=== PATIENT | male | born 1955 | race Caucasian/White ===

== ENCOUNTER 2018-03-28 14:11 | Emergency (ER) | payer SELFPAY ==
[~2018-03-28] VITALS: Ht 177.8 cm; Wt 86.2 kg
[2018-03-28] MEDS ORDERED: LACTATED RINGERS 1,000 ML IV ONE (14:50)
--- NOTE | 2018-03-28 14:50 | ED Syncope ---
General Chief Complaint: Dizziness/Syncope Stated Complaint: SYNCOPY Nursing Triage Note: PT ARRIVED PER EMS, PT CO OF SYNCOPAL EPISODE WHILE OUT SIDE PT STATES IS TRAVELING [employer]. PT HAS SL IN PLACE AND HAS 1L OF NS PER EMS. 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 He says he was trying to arrange a ride to [place]. He is a traveling wilber. He was talking to somebody and the next thing he remembers that person was standing over him telling him that he had passed out and went down to 1 knee. He does not have any pain in his head and does not think he struck his head. He is not on any medications except for ginseng and vitamin C. He does not have any known medical history. He said when he was a kid he had some palpitations but nothing came of that workup. He does not have a history of diabetes. Is not having any shortness of breath, palpitations, chest pain. He has a little pain in his left shoulder since this morning when he woke up he says he thinks he slept on it wrong. She's having no fevers, chills or rash. EMS reports he was able to get onto the gurney and into the truck on his own. The patient also reports she's been having some near syncopal episodes while at [employer] and he thought maybe at first it was just related to anxiety of public speaking. He's been doing traveling [employer] for over 40 years. He says a few weeks ago he was in [place], [place] and had some bleeding from his thyroid so he went to a doctor's clinic and they put a stitch in his throat from the inside. He has no history of hypo-or hyperthyroidism nor is he had any surgeries on his thyroid. He says this is done in the clinic. Allergies and Home Medications Allergies Coded Allergies: No Known Drug Allergies (Unverified , 03/28/18) Patient Home Medication List Home Medication List Reviewed: Yes Constitutional: No chills, No diaphoresis, No fever, No malaise EENTM: No ear discharge, No hearing loss, No ear pain Respiratory: cough Cardiovascular: No chest pain, No edema, No Hx of Intervention, No palpitations ; syncope Gastrointestinal: No abdominal pain, No constipation, No diarrhea, No nausea Genitourinary: No discharge, No dysuria Musculoskeletal: No joint pain, No joint swelling Skin: No pruritus, No rash Psychiatric/Neurological: Denies Headache, Denies Numbness, Denies Paresthesia Past Dygloxa-Vikdbl-Wcasdg Hx Patient Social History Alcohol Use: Denies Use Recreational Drug Use: No Smoking Status: Never a Smoker Recent Foreign Travel: No Contact w/Someone Who Travel: No Recent Infectious Disease Expo: No Recent Hopitalizations: No Physical Abuse: No Sexual Abuse: No Seasonal Allergies Seasonal Allergies: No Past Medical History Nursing Suicide Risk Score: 0 Physical Exam Vital Signs Vital Signs - First Documented 03/28/18 14:11 Temp 98.9 Pulse 89 Resp 22 B/P (MAP) 127/92 (104) Pulse Ox 99 Capillary Refill : Less Than 3 Seconds General Appearance: No Apparent Distress, Thin HEENT: PERRL/EOMI, Normal ENT Inspection, Pharynx Normal Neck: Full Range of Motion, Normal Inspection, Non Tender, Supple, Other (no evidence of wound or surgery.) Cardiovascular: Regular Rate, Rhythm, No Edema, No JVD, No Murmur, Normal Peripheral Pulses Respiratory: Chest Non Tender, Lungs Clear, Normal Breath Sounds, No Accessory Muscle Use, No Respiratory Distress Gastrointestinal: Normal Bowel Sounds, Non Tender, Soft Extremities: Normal Capillary Refill, Non Tender, No Calf Tenderness, No Pedal Edema Neurologic/Psychiatric: Alert, Oriented x3, No Motor/Sensory Deficits, Normal Mood/Affect, service tester II-XII Norm as Tested Cranial Nerves: Normal Hearing, Normal Speech, PERRL Coordination/Gait: Normal Finger to Nose, Normal Gait Motor/Sensory: No Motor Deficit, No Sensory Deficit, No Pronator Drift Skin: Normal Color, Warm/Dry Lymphatic: No Adenopathy Progress/Results/Core Measures Results/Orders Lab Results Laboratory Tests Test 03/28/18 14:30 03/28/18 14:44 03/28/18 14:53 Range/Units White Blood Count 6.6 4.3-11.0 10^3/uL Red Blood Count 4.33 L 4.35-5.85 10^6/uL Hemoglobin 13.4 13.3-17.7 G/DL Hematocrit 39 L 40-54 % Mean Corpuscular Volume 91 80-99 FL Mean Corpuscular Hemoglobin 31 25-34 PG Mean Corpuscular Hemoglobin Concent 34 32-36 G/DL Red Cell Distribution Width 13.2 10.0-14.5 % Platelet Count 356 130-400 10^3/uL Mean Platelet Volume 9.8 7.4-10.4 FL Neutrophils (%) (Auto) 67 42-75 % Lymphocytes (%) (Auto) 20 12-44 % Monocytes (%) (Auto) 12 0-12 % Eosinophils (%) (Auto) 1 0-10 % Basophils (%) (Auto) 1 0-10 % Neutrophils # (Auto) 4.4 1.8-7.8 X 10^3 Lymphocytes # (Auto) 1.3 1.0-4.0 X 10^3 Monocytes # (Auto) 0.8 0.0-1.0 X 10^3 Eosinophils # (Auto) 0.0 0.0-0.3 10^3/uL Basophils # (Auto) 0.0 0.0-0.1 10^3/uL Sodium Level 140 135-145 MMOL/L Potassium Level 4.1 3.6-5.0 MMOL/L Chloride Level 110 H 98-107 MMOL/L Carbon Dioxide Level 19 L 21-32 MMOL/L Anion Gap 11 5-14 MMOL/L Blood Urea Nitrogen 10 7-18 MG/DL Creatinine 0.93 0.60-1.30 MG/DL Estimat Glomerular Filtration Rate > 60 BUN/Creatinine Ratio 11 Glucose Level 86 70-105 MG/DL Calcium Level 8.7 8.5-10.1 MG/DL Magnesium Level 2.1 1.8-2.4 MG/DL Total Bilirubin 0.6 0.1-1.0 MG/DL Aspartate Amino Transf (AST/SGOT) 19 5-34 U/L Alanine Aminotransferase (ALT/SGPT) 29 0-55 U/L Alkaline Phosphatase 76 40-136 U/L C-Reactive Protein High Sensitivity 0.04 0.00-0.50 MG/DL Total Protein 6.1 L 6.4-8.2 GM/DL Albumin 4.0 3.2-4.5 GM/DL Thyroid Stimulating Hormone (TSH) 1.30 0.35-4.94 UIU/ML Glucometer 86 70-110 MG/DL Urine Color YELLOW Urine Clarity SLIGHTLY CLOUDY Urine pH 6 5-9 Urine Specific [place] 1.010 L 1.016-1.022 Urine Protein NEGATIVE NEGATIVE Urine Glucose (UA) NEGATIVE NEGATIVE Urine Ketones NEGATIVE NEGATIVE Urine Nitrite NEGATIVE NEGATIVE Urine Bilirubin NEGATIVE NEGATIVE Urine Urobilinogen NORMAL NORMAL MG/DL Urine Leukocyte Esterase NEGATIVE NEGATIVE Urine RBC (Auto) NEGATIVE NEGATIVE Urine RBC NONE /HPF Urine WBC NONE /HPF Urine Squamous Epithelial Cells NONE /HPF Urine Crystals NONE /LPF Urine Bacteria NEGATIVE /HPF Urine Casts NONE /LPF Urine Mucus NEGATIVE /LPF Urine Culture Indicated NO Urine Opiates Screen NEGATIVE NEGATIVE Urine Oxycodone Screen NEGATIVE NEGATIVE Urine Methadone Screen NEGATIVE NEGATIVE Urine Propoxyphene Screen NEGATIVE NEGATIVE Urine Barbiturates Screen NEGATIVE NEGATIVE Ur Tricyclic Antidepressants Screen NEGATIVE NEGATIVE Urine Phencyclidine Screen NEGATIVE NEGATIVE Urine Amphetamines Screen NEGATIVE NEGATIVE Urine Methamphetamines Screen NEGATIVE NEGATIVE Urine Benzodiazepines Screen NEGATIVE NEGATIVE Urine Cocaine Screen NEGATIVE NEGATIVE Urine Cannabinoids Screen NEGATIVE NEGATIVE My Orders Orders - CASA CAT Cbc With Automated Diff (03/28/18 14:50) Comprehensive Metabolic Panel (03/28/18 14:50) Hs C Reactive Protein (03/28/18 14:50) Drug Screen Stat (Urine) (03/28/18 14:50) Magnesium (03/28/18 14:50) Ua Culture If Indicated (03/28/18 14:50) Chest Pa/Lat (2 View) (03/28/18 14:50) Saline Lock/Iv-Start (03/28/18 14:50) Lactated Ringers (Lr 1000 Ml Iv Solution (03/28/18 14:50) Ekg Tracing (03/28/18 14:52) Continuous Ekg Monitoring (03/28/18 14:52) Thyroid Stimulating Hormone (03/28/18 14:52) Ct Head/Cervical Spine Wo (03/28/18 14:56) Orthostatic Vital Signs (Adult (03/28/18 15:02) Vital Signs/I&O 03/28/18 03/28/18 14:11 15:34 Temp 98.9 Pulse 89 80 68 87 Resp 22 B/P (MAP) 127/92 (104) 139/80 (99) 121/76 (91) 119/79 (92) Pulse Ox 99 Blood Pressure Mean: 104 FSBG Bedside Testing Finger Stick Blood Glucose: 86 Blood Glucose Action Taken: rn notified Progress Progress Note #1: Time: 15:01 Progress Note Blood glucose is 86. We'll get an EKG, we have discussed risk benefits and alternatives to doing a CT of his head and he has elected to do it. We will establish an IV and give him some IV fluids as well as check some orthostatics and basic lab work looking for evidence of why he is having syncopal episodes. Orthostatics are normal. Patient's Hoang received a liter of fluids from EMS and this would explain why he does not look dehydrated. Progress Note #2: Time: 15:57 Progress Note The patient's symptoms are gone he is walking around much better. It's possible he just got overheated but it would be [place] that he follow up with primary care provider and consider an out patient monitor study. He says he will talk to his primary care doctor at home. Initial ECG Impression Date: March 28, 2018 Initial ECG Impression Time: 15:28 Initial ECG Rate: 63 Initial ECG Rhythm: Normal Sinus Initial ECG Intervals: Normal Initial ECG Impression: Normal Initial ECG Comparisson: No Previous ECG Available Comment No ST elevation or depression. Diagnostic Imaging Diagonstic Imaging: Xray Plain Films/CT/US/NM/MRI: chest Comments VIA [facility], [facility]. [place], [place] NAME: BEENA [facility]RBAN[facility] REC#: [id number] PT STATUS: REG ER : 1955 PHYSICIAN: CASA CAT MD ADMIT DATE: 03/28/18/ER Draft Date of Exam:03/28/18 CHEST PA/LAT (2 VIEW) EXAM: PA and lateral chest at 3:32 p.m. INDICATION: Syncope COMPARISON: There are no prior studies available for comparison. FINDINGS: The heart size is within normal limits. The lungs are clear and perhaps slightly hyperexpanded. The possibility of mild COPD should be considered. There is no sign of failure, pneumonia or of pleural effusion. The mediastinum is not widened. The osseous structures are intact. IMPRESSION: 1. There is no acute cardiopulmonary abnormality identified. 2. The mild hyperexpansion of the lungs does raise the question of mild COPD. Clinical followup is recommended. Dictated on workstation # [id number] Dict: 03/28/18 1514 Trans: 03/28/18 1522 [facility] [id number] Interpreted by: ORACIO METZGER MD Electronically signed by: Reviewed: Reviewed by Me Diagonstic Imaging: CT Plain Films/CT/US/NM/MRI: c-spine, head Comments VIA [place], [place] NAME: BEENA URBANO [facility] REC#: [id number] PT STATUS: REG ER : 1955 PHYSICIAN: CASA CAT MD ADMIT DATE: 03/28/18/ER Draft Date of Exam:03/28/18 CT HEAD/CERVICAL SPINE WO PROCEDURE: CT head and CT cervical spine without contrast. TECHNIQUE: Multiple contiguous axial images were obtained through the brain and cervical spine without the use of intravenous contrast. Sagittal and coronal reformations through the cervical spine were then performed. INDICATION: Syncope. There are no prior studies available for comparison. FINDINGS: CT head: There is no mass, shift of midline or hemorrhage to suggest an acute intracranial abnormality. The ventricles are prominent and the right lateral ventricle and the right occipital horn are asymmetrically larger than the left. This is probably a developmental variant. The bone window show no evidence for fracture or for destructive lesion. The orbits are symmetrical and within normal limits. The sinuses are generally clear. IMPRESSION: 1. There is no evidence for an acute intracranial abnormality. There is no sign of a mass lesion either. 2. If clinical concern regarding an underlying abnormality persists, MRI would be recommended for further study. 3. The ventricles are prominent and the right lateral ventricle and right occipital horn are asymmetrically larger than the left. This is probably a developmental variant. CT cervical spine: The reconstructed sagittal images show there is narrowing of the disc space at C2-3. This could be related to a variant of the so-called block vertebra, a segmental anomaly. The other vertebral bodies are generally unremarkable. The intervertebral spaces are fairly well-maintained. There are prominent bridging osteophytes along the ventral aspects of C5-6 and C6-7. There is no fracture or acute bony abnormality identified. The lung apices are clear. There is no sign of retropharyngeal edema. The thyroid gland is unremarkable. IMPRESSION: 1. There is no acute bony abnormality. 2. The appearance of C2 and C3 could be an anomaly of segmentation. Dictated on workstation # [id number] Dict: 03/28/18 1516 Trans: 03/28/18 1526 KB [id number] Interpreted by: ORACIO METZGER MD Electronically signed by: Reviewed: Reviewed by Me Departure Impression Primary Impression: Syncope and collapse Additional Impression: Dehydration after exertion Disposition: 01 HOME, SELF-CARE Condition: Improved Departure-Patient Inst. Decision time for Depature: 15:58 Referrals: NO,LOCAL PHYSICIAN (PCP) Primary Care Physician Patient Instructions: Syncope (Fainting) (DC) Add. Discharge Instructions: Drink more fluids especially with electrolytes such as Powerade, Gatorade etc. Get a follow-up appointment with your primary care provider to discuss outpatient workup of syncope and consider things such as a Holter monitor. All discharge instructions reviewed with patient and/or family. Voiced understanding. CASA CAT March 28, 2018 14:49
[2018-03-28 14:58] LABS: BASOPHILS % (AUTO) 1 % (0-10); EOSINOPHILS % (AUTO) 1 % (0-10); HEMATOCRIT 39 % (40-54); HEMOGLOBIN 13.4 G/DL (13.3-17.7); LYMPHOCYTES # (AUTO) 1.3 X 10^3 (1.0-4.0); LYMPHOCYTES % (AUTO) 20 % (12-44); MEAN CORPUSCULAR HEMOGLOBIN 31 PG (25-34); MEAN CORPUSCULAR HGB CONC 34 G/DL (32-36); MEAN CORPUSCULAR VOLUME 91 FL (80-99); MEAN PLATELET VOLUME 9.8 FL (7.4-10.4); MONOCYTES # (AUTO) 0.8 X 10^3 (0.0-1.0); MONOCYTES % (AUTO) 12 % (0-12); NEUTROPHILS # (AUTO) 4.4 X 10^3 (1.8-7.8); NEUTROPHILS % (AUTO) 67 % (42-75); PLATELET COUNT 356 10^3/uL (130-400); RED BLOOD COUNT 4.33 10^6/uL (4.35-5.85); RED CELL DISTRIBUTION WIDTH 13.2 % (10.0-14.5); WHITE BLOOD COUNT 6.6 10^3/uL (4.3-11.0)
[2018-03-28 15:02] LABS: BILIRUBIN,URINE NEGATIVE (NEGATIVE); CLARITY,URINE SLIGHTLY CLOUDY; COLOR,URINE YELLOW; GLUCOSE, URINE (UA) NEGATIVE (NEGATIVE); KETONES,URINE NEGATIVE (NEGATIVE); LEUKOCYTE ESTERASE ,URINE NEGATIVE (NEGATIVE); NITRITE,URINE NEGATIVE (NEGATIVE); PH,URINE 6 (5-9); PROTEIN,URINE NEGATIVE (NEGATIVE); UROBILINOGEN,URINE NORMAL (NORMAL)
[2018-03-28 15:14] LABS: ALANINE AMINOTRANSFERASE 29 U/L (0-55); ALKALINE PHOSPHATASE 76 U/L (40-136); BILIRUBIN,TOTAL 0.6 MG/DL (0.1-1.0); BUN/CREATININE RATIO 11; CALCIUM 8.7 MG/DL (8.5-10.1); CARBON DIOXIDE 19 MMOL/L (21-32); CHLORIDE 110 MMOL/L (98-107); CREATININE SERUM 0.93 MG/DL (0.60-1.30); GFR ESTIMATED > 60; GLUCOSE 86 MG/DL (70-105); MAGNESIUM 2.1 MG/DL (1.8-2.4); POTASSIUM 4.1 MMOL/L (3.6-5.0); SODIUM 140 MMOL/L (135-145); TOTAL PROTEIN 6.1 GM/DL (6.4-8.2)
--- NOTE | 2018-03-28 15:22 | Diagnostic Imaging Report ---
EXAM: PA and lateral chest at 3:32 p.m. INDICATION: Syncope COMPARISON: There are no prior studies available for comparison. FINDINGS: The heart size is within normal limits. The lungs are clear and perhaps slightly hyperexpanded. The possibility of mild COPD should be considered. There is no sign of failure, pneumonia or of pleural effusion. The mediastinum is not widened. The osseous structures are intact. IMPRESSION: 1. There is no acute cardiopulmonary abnormality identified. 2. The slight hyperexpansion of the lungs does raise the question of mild COPD. Clinical followup is recommended. Dictated by: Dictated on workstation # [id number]
[2018-03-28 15:25] LABS: AMPHETAMINE SCREEN, URINE NEGATIVE (NEGATIVE); BACTERIA,URINE NEGATIVE /HPF; BARBITURATE SCREEN URINE NEGATIVE (NEGATIVE); BENZODIAZEPINES SCREEN URINE NEGATIVE (NEGATIVE); CANNABINOID SCREEN, URINE NEGATIVE (NEGATIVE); COCAINE SCREEN URINE NEGATIVE (NEGATIVE); METHADONE STAT NEGATIVE (NEGATIVE); METHAMPHETAMINE SCREEN URINE S NEGATIVE (NEGATIVE); OPIATE SCREEN URINE NEGATIVE (NEGATIVE); OXYCODONE STAT NEGATIVE (NEGATIVE); PROPOXYPHENE STAT NEGATIVE (NEGATIVE); TRICYCLIC ANTIDEPRESSANTS SCRE NEGATIVE (NEGATIVE)
--- NOTE | 2018-03-28 15:27 | Diagnostic Imaging Report ---
PROCEDURE: CT head and CT cervical spine without contrast. TECHNIQUE: Multiple contiguous axial images were obtained through the brain and cervical spine without the use of intravenous contrast. Sagittal and coronal reformations through the cervical spine were then performed. INDICATION: Syncope. There are no prior studies available for comparison. FINDINGS: CT head: There is no mass, shift of midline or hemorrhage to suggest an acute intracranial abnormality. The ventricles are prominent and the right lateral ventricle and the right occipital horn are asymmetrically larger than the left. This is probably a developmental variant. The bone window show no evidence for fracture or for destructive lesion. The orbits are symmetrical and within normal limits. The sinuses are generally clear. IMPRESSION: 1. There is no evidence for an acute intracranial abnormality. There is no sign of a mass lesion either. 2. If clinical concern regarding an underlying abnormality persists, MRI would be recommended for further study. 3. The ventricles are prominent and the right lateral ventricle and right occipital horn are asymmetrically larger than the left. This is probably a developmental variant. CT cervical spine: The reconstructed sagittal images show there is narrowing of the disc space at C2-3. This could be related to a variant of the so-called block vertebra, a segmental anomaly. The other vertebral bodies are generally unremarkable. The intervertebral spaces are fairly well-maintained. There are prominent bridging osteophytes along the ventral aspects of C5-6 and C6-7. There is no fracture or acute bony abnormality identified. The lung apices are clear. There is no sign of retropharyngeal edema. The thyroid gland is unremarkable. IMPRESSION: 1. There is no acute bony abnormality. 2. The appearance of C2 and C3 could be an anomaly of segmentation. Dictated by: Dictated on workstation # [id number]
[2018-03-28 15:34] VITALS: BP_SYST 119; BP_SYST 121; BP_SYST 139; BP_DIAS 76; BP_DIAS 79; BP_DIAS 80
[2018-03-28 16:40] VITALS: BP 119/79
== END 2018-03-28 16:40 | disposition home or self-care (01) ==
LOC: ER 14:29
DX: R55 Syncope and collapse (principal); E86.0 Dehydration
CPT/HCPCS: 36415; 70450; 71046; 72125; 80053; 80306; 81000; 82962; 83735; 84443; 85025; 86141; 93005